=== PATIENT | female | born 1960 | race Caucasian/White ===

== ENCOUNTER 2020-06-26 12:47 | Emergency (ER) | payer MEDICAID ==
[~2020-06-26] VITALS: Ht 167.6 cm; Wt 67.5 kg
[~2020-06-26 12:47] MED LIST: ATAZ300C; BENZ1TAB7; LAMI300T; LEVE250T2; RISP3; RITO100T; SENN8.6T71; TRAZ-251; WARF1TAB85; ZIAG3; [UNRECOGNIZED DRUG - OTHER]
[2020-06-26] MEDS ORDERED: ACETAMINOPHEN 325MG TABLET PO STA (13:03)
[2020-06-26] MEDS ORDERED: SODIUM CHLORIDE 0.9% 1,000 ML IV ONE (13:15)
[2020-06-26 13:49] LABS: PROTHROMBIN TIME 10.4 sec (9.6-11.0)
[2020-06-26 13:53] LABS: CHLORIDE 107 mEq/L (98-107)
[2020-06-26 14:10] LABS: BASOPHILS % 0.5 % (0.0-2.0); EOSINOPHILS % 4.7 % (0.0-5.0); HEMOGLOBIN. 15.2 g/dL (12.0-16.0); MEAN CORPUSCULAR HEMOGLOBIN 33.5 pg (28.0-32.0); MEAN CORPUSCULAR VOLUME 94.8 fL (81.0-99.0); MEAN PLATELET VOLUME 9.3 fl (7.4-10.4); MONOCYTES % 11.7 % (2.0-8.0); NEUTROPHILS % 58.1 % (40.0-76.0); PLATELET 141 x1000/uL (130-400); RED BLOOD CELL COUNT 4.53 mill/uL (4.2-5.4); RED CELL DISTRIBUTION WIDTH 12.9 % (11.6-14.6)
[2020-06-26] MEDS ORDERED: ALBUTEROL 6.7GM HFA INHALER ORI ONE (17:00)
[2020-06-26 18:01] VITALS: BP 120/78
== END 2020-06-26 18:01 | disposition home or self-care (01) ==
LOC: ER 12:47
DX: J40 Bronchitis, not specified as acute or chronic (principal); B34.9 Viral infection, unspecified; I10 Essential (primary) hypertension; G40.909 Epilepsy, unspecified, not intractable, without status epilepticus; Z79.899 Other long term (current) drug therapy
CPT/HCPCS: 36415; 71045; 80053; 83605; 84145; 85025; 85610; 87040; 93005; 96360; 99285; J7030